=== PATIENT | female | born 1985 | race Caucasian/White ===

== ENCOUNTER 2016-10-11 11:28 | Emergency (ER) | payer BC ==
[~2016-10-11 11:28] MED LIST: Acetaminophen/HYDROcodone 325-5 MG Tab PO ONE
[2016-10-11] MEDS ORDERED: Morphine 4 MG/ML Syringe IM ONE (11:37)
[2016-10-11] MEDS ORDERED: Ondansetron 4 MG Tab.DIS PO ONE (11:37)
--- NOTE | 2016-10-11 11:46 | EDM.PDOC ---
ED HPI Trauma - General Stated Complaint: POSSIBLE BROKEN ARM Time Seen by Provider: 10/11/16 11:30 Source: Reports: Patient History Limitations: Reports: No limitations - History of Present Illness INITIAL COMMENTS - FREE TEXT/NARRATIVE: This patient is a 31 year old female that presents to the ER. Patient reports a cow hit the gate and the gate hit her. Patient reports the gate hit her in the head and her left arm was in the way of the gate and her. Patient reports having left wrist pain with deformity. Patient reports that she did not have LOC , n, v, vision changes. She is alert and oriented. She does not meet requirements for head ct at this time. She reports her only pain complaint is the left wrist. Pulses +2, cap refill <2 sec, sensory intact. Neurovascular intact. Motor is decreased due to pain. Symptom Onset Date: 10/11/16 Occurred When: just prior to arrival Occurred Where: home Method of Injury: direct blow Severity: moderate Pain/Injury Location: Reports: head, upper extremity, left Consciousness: Reports: no loss of consciousness, remembers incident, remembers coming to hosp Associated Symptoms: Denies: abdominal pain, chest pain, confusion, dizziness, headache, lightheadedness, muscle spasms, nausea/vomiting, neck pain, ringing in ears, seizures, shortness of breath, slurred speech, trouble walking, vision changes Allergies/ADRs: Allergies No Known Allergies Allergy (Verified 10/11/16 12:22) Home Medications: Ambulatory Orders Amoxicillin 500 mg PO ASDIRECTED 10/11/16 [Confirmed 10/11/16] Prednisone [IJD: Prednisone] 10 mg PO ASDIRECTED 10/11/16 [Confirmed 10/11/16] Review of Systems - Review of Systems Review Of Systems: See Below Constitutional: Reports: no symptoms Eyes: Reports: no symptoms Ears: Reports: no symptoms Nose: Reports: no symptoms Mouth/Throat: Reports: no symptoms Respiratory: Reports: No Symptoms Cardiovascular: Reports: no symptoms GI/Abdominal: Reports: No symptoms Genitourinary: Reports: no symptoms Musculoskeletal: Reports: joint pain (left wrist) Skin: Reports: other (swelling left frontal head) Neurological: Reports: No Symptoms Psychiatric: Reports: no symptoms Trauma Exam - Physical Exam Exam: See Below Exam Limited By: No limitations General Appearance: Reports: alert, WD/WN, no apparent distress Head: Reports: scalp hematoma (mild small left frontal. [id number] mildly raised. ) . Denies: scalp lacerations, scalp abrasions, active bleeding, facial abrasions , facial ecchymosis, facial lacerations, facial swelling, sinus tenderness, facial tenderness, raccoon eyes Eyes: bilateral eye: EOMI, normal inspection, PERRL Ears: Reports: normal external exam, normal canal, hearing grossly normal, normal TMs Nose: Reports: normal inspection, normal mucousa, no blood Throat/Mouth: Reports: Normal inspection, Normal lips, Normal teeth, Normal gums , Normal oropharynx, Normal voice, No airway compromise Neck: Reports: non-tender, full range of motion, normal alignment, normal inspection Respiratory Exam: Reports: no respiratory distress, lungs clear, normal breath sounds, no accessory muscle use, chest non-tender Cardiovascular: Reports: normal peripheral pulses, regular rate, rhythm, no edema, no gallop, no JVD, no murmur, no rub GI/Abdominal: Reports: soft, non tender Back: Reports: full range of motion, normal inspection, non-tender. Denies: CVA tenderness (R), CVA tenderness (L), decreased range of motion, muscle spasm , paraspinal tenderness, vertebral tenderness Extremities: Reports: bony-point tenderness (left wrist), pain with movement ( left wrist), tenderness (left wrist with deformity) Neurologic: Reports: alert, normal mood/affect, oriented x 3 Skin: Reports: Normal color, Warm/dry - [place] Coma Score Best Eye Response ([place]): (4) open spontaneously Best Verbal Response ([place]): (5) oriented Best Motor Response ([place]): (6) obeys commands Course - Orders/Labs/Meds Orders: Active Orders 24 hr Category Date Time Status Wrist Comp Min 3V Lt [CR] Stat Exams 10/11/16 11:37 Ordered Meds: Medications Discontinued Medications Generic Name Dose Route Start Last Admin Trade Name Freq PRN Reason Stop Dose Admin Hydrocodone Bitart/Acetaminophen 3 packet 10/11/16 13:06 Take Home: Acetaminophen/Hydrocod, 2 Tab Pack PO 10/11/16 13:07 ONETIME ONE Morphine Sulfate 4 mg 10/11/16 11:37 10/11/16 12:02 Morphine IM 10/11/16 11:38 4 mg ONETIME ONE Administration Ondansetron HCl 4 mg 05/07/17 11:37 10/11/16 12:03 Zofran Odt PO 10/11/16 11:38 4 mg ONETIME ONE Administration - Radiology Interpretation Free Text/Narrative:: Left wrist: Radius fx distal. Departure - Departure Time of Disposition: 12:53 Disposition: Home, Self-Care 01 Condition: good Clinical Impression: Fracture of radius Qualifiers: Encounter type: initial encounter Radius location: distal Fracture type: closed Fracture morphology: unspecified fracture morphology Laterality: left Qualified Code(s): S52.502A - Unspecified fracture of the lower end of left radius, initial encounter for closed fracture Instructions: Wrist Fracture Treated With Immobilization, [id number] Referrals: PCP,None [Primary Care Provider] - Additional Instructions: Followup with Orthopedic Dr. Forde [facility] Appointment tomorrow: Be at office at 12:30pm [facility] [address] [place] [address] Return to the ER for worsening of condition or any emergent concerns Rest Ice Elevate Motrin 800mg every 8 hours as needed Padroni 5/325mg 1-2 pills every 4-6 hours as needed for pain #6 Take Home - My Orders Last 24 Hours: My Active Orders 10/11/16 11:37 Wrist Comp Min 3V Lt [CR] Stat - Assessment/Plan Last 24 Hours: My Active Orders 10/11/16 11:37 Wrist Comp Min 3V Lt [CR] Stat Plan: PLEASE SEE RN NOTE FOR PFSH.
[2016-10-11] MEDS ORDERED: Take Home: Acetaminophen/HYDROcodone 325-5 MG, 2 Tab Pack PO ONE (13:06)
== END 2016-10-11 13:30 | disposition home or self-care (01) ==
LOC: CC.ED 11:28
DX: S52.502A Unspecified fracture of the lower end of left radius, initial encounter for closed fracture (principal); W22.8XXA Striking against or struck by other objects, initial encounter; Y92.009 Unspecified place in unspecified non-institutional (private) residence as the place of occurrence of the external cause
CPT/HCPCS: 73110; 96372; 99283; A9270; J2270; 29125

== ENCOUNTER 2017-08-17 09:20 | Emergency (ER) | payer BC ==
[2017-08-17 09:35] VITALS: BP 106/62
[2017-08-17] MEDS ORDERED: Sodium Chloride 0.9% 1,000 ML IV ONE (09:51)
[2017-08-17] MEDS ORDERED: Acetaminophen 325 MG Tab PO ONE (09:51)
[2017-08-17] MEDS ORDERED: Metoclopramide 10 MG/2 ML SDV IVPUSH ONE (09:52)
[2017-08-17 10:21] LABS: CHLORIDE,CL 103 mEq/L (98-106); SODIUM,NA 137 mEq/L (136-145)
[2017-08-17] MEDS ORDERED: Sodium Chloride 0.9% 1,000 ML ONE (11:14)
[2017-08-17] MEDS ORDERED: Sodium Chloride 0.9% 1,000 ML IV SCH (11:30)
--- NOTE | 2017-08-17 11:33 | EDM.PDOC ---
ED HPI GENERAL MEDICAL PROBLEM - General Chief Complaint: General Stated Complaint: rib pain Time Seen by Provider: 08/17/17 09:35 Source of Information: Reports: Patient History Limitations: Reports: No Limitations - History of Present Illness INITIAL COMMENTS - FREE TEXT/NARRATIVE: Yuliana is a 32 year old female who presents to the ED with complaints of mid thoracic back pain. She reports that the pain first started around 4 o'clock this morning. It has worsened since then. She reports she was "burping more than normal," so she did try taking some Pepto Bismol initially. She reports she then started vomiting. She tried taking Tylenol for the pain, but reports she vomited about 15 minutes after taking. She rates the pain a 9/10. She describes the pain as if "a tight band were wrapped around from her mid back." Pain is worse with lying down. She reports she has been unable to sleep since 4 am. Does reports nausea, vomiting, decreased appetite. Denies any fever, chills , abdominal pain, diarrhea, constipation, extremity swelling. Denies any abdominal cramping or vaginal bleeding. Reports baby has been active. FHTs 155. Reports she has had care without any complications with Dr. Hutchinson in [place]. Reports she has an appointment scheduled with her next week. Onset: Today Onset Date: 08/17/17 Onset Time: 04:00 Duration: Constant, Getting Worse Location: Reports: Back Quality: Reports: Pressure Severity: Severe Improves with: Reports: None Worsens with: Reports: Movement Context: Reports: Activity Associated Symptoms: Reports: Chest Pain, Loss of Appetite, Nausea/Vomiting. Denies: Confusion, Cough, cough w sputum, Diaphoresis, Fever/Chills, Headaches, Malaise, Rash, Seizure, Shortness of Breath, Syncope, Weakness Treatments LPN PER DIEM: Reports: Acetaminophen, Other (see below) (Pepto Bismol) Chest Pain Score (Numeric/FACES): 9 - Related Data Allergies Allergy/AdvReac Type Severity Reaction Status Date / Time No Known Allergies Allergy Verified 08/17/17 09:35 Home Meds: Home Meds Cholecalciferol (Vitamin D3) [Vitamin D3] 10,000 unit PO DAILY 08/17/17 [History ] Ondansetron HCl [Zofran] 4 mg PO Q8H PRN #20 tablet 08/17/17 [Rx] PNV95/Ferrous Fumarate/FA [ Tablet] 1 each PO DAILY 08/17/17 [History] Past Medical History Respiratory History: Reports: Asthma - Past Surgical History HEENT Surgical History: Reports: LASIK, Oral Surgery, Tonsillectomy Social & Family History - Tobacco Use Smoking Status *Q: Never Smoker Used Tobacco, but Quit: Yes Month/Year Tobacco Last Used: 2012 - Caffeine Use Caffeine Use: Reports: None - Recreational Drug Use Recreational Drug Use: No ED ROS GENERAL - Review of Systems Review Of Systems: See Below Constitutional: Denies: Fever, Chills Respiratory: Reports: Shortness of Breath Cardiovascular: Reports: Dyspnea on Exertion. Denies: Blood Pressure Problem, Edema, Lightheadedness GI/Abdominal: Reports: Abdominal Pain, Decreased Appetite, Nausea, Vomiting. Denies: Constipation, Diarrhea, Distension, Hematemesis, Hematochezia : Reports: No Symptoms Neurological: Reports: No Symptoms Psychiatric: Reports: No Symptoms ED EXAM, GENERAL - Physical Exam Exam: See Below Exam Limited By: No Limitations General Appearance: Alert, WD/WN, Anxious, Mild Distress Head: Atraumatic, Normocephalic Neck: Normal Inspection, Supple, Non-Tender, Full Range of Motion Respiratory/Chest: No Respiratory Distress, Lungs Clear, Normal Breath Sounds, No Accessory Muscle Use, Chest Non-Tender Cardiovascular: Normal Peripheral Pulses, Regular Rate, Rhythm, No Edema, No Gallop, No JVD, No Murmur, No Rub GI/Abdominal: Normal Bowel Sounds, Soft, Tender. No: No Distention, Guarding, Rigid, Rebound Back Exam: Normal Inspection, Full Range of Motion. No: CVA Tenderness (L), CVA Tenderness (R), Paraspinal Tenderness, Vertebral Tenderness Extremities: Normal Inspection, Normal Range of Motion, Non-Tender, Normal Capillary Refill, No Pedal Edema Neurological: Alert, Oriented, CN II-XII Intact, Normal Cognition, Normal Gait, Normal Reflexes, No Motor/Sensory Deficits Psychiatric: Anxious Skin Exam: Warm, Dry, Intact, Normal Color, No Rash Lymphatic: No Adenopathy Course - Vital Signs Last Recorded V/S: Last Vital Signs Temp 97.0 F 08/17/17 09:32 Pulse 63 08/17/17 09:32 Resp 20 08/17/17 09:32 BP 106/62 08/17/17 09:32 Pulse Ox 99 08/17/17 09:32 - Orders/Labs/Meds Labs: Laboratory Tests 08/17/17 08/17/17 08/17/17 Range/Units 09:56 09:56 09:56 WBC 13.2 H (5.0-10.0) 10^3/uL RBC 4.21 (4.00-5.50) 10^6/uL Hgb 12.6 (12.0-16.0) g/dL Hct 37.5 (37.0-47.0) % MCV 89.1 (82.0-94.0) fL MCH 29.9 (27.0-32.0) pg MCHC 33.6 (33.0-38.0) g/dL RDW Coeff of Shaylee 13.4 (11.0-15.0) % Plt Count 319 (150-400) 10^3/uL Neut % (Auto) 87.5 H (35-85) % Lymph % (Auto) 7.5 L (10-55) % [place] % (Auto) 4.6 (0-16) % Eos % (Auto) 0.3 (0-5) % Baso % (Auto) 0.1 (0-3) % Neut # (Auto) 11.59 H (1.80-7.00) 10^3/uL Lymph # (Auto) 0.99 L (1.00-4.80) 10^3/uL [place] # (Auto) 0.61 (0.00-0.80) 10^3/uL Eos # (Auto) 0.04 (0.00-0.45) 10^3/uL Baso # (Auto) 0.01 10^3/uL Sodium 137 (136-145) mEq/L Potassium 4.2 (3.5-5.0) mEq/L Chloride 103 (98-106) mEq/L Carbon Dioxide 24 (21-32) mmol/L BUN 10 (7-18) mg/dL Creatinine 0.6 (0.6-1.0) mg/dL Est Cr Clr Drug Dosing 122.25 mL/min Estimated GFR (MDRD) > 60 (>=60) mL/min Glucose 142 H (75-99) mg/dL Calcium 8.2 L (8.4-10.1) mg/dL Total Bilirubin 0.8 (0.0-1.0) mg/dL AST 322 H* (15-37) U/L ALT 285 H (12-78) U/L Alkaline Phosphatase 143 H (46-116) U/L Troponin I < 0.017 (0.00-0.06) ng/mL C-Reactive Protein < 0.2 L (0.2-0.8) mg/dL Total Protein 6.5 (6.4-8.2) g/dL Albumin 3.0 L (3.4-5.0) g/dL Amylase 48 (25-115) U/L Urine Color Dark yellow (YELLOW) Urine Appearance Clear (CLEAR) Urine pH 6.0 (4.5-8.0) Ur Specific [place] >= 1.030 H (1.003-1.020) Urine Protein 100 H (NEGATIVE) mg/dL Urine Glucose (UA) 100 H (NEGATIVE) mg/dL Urine Ketones 15 H (NEGATIVE) mg/dL Urine Occult Blood Negative (NEGATIVE) Urine Nitrite Negative (NEGATIVE) Urine Bilirubin Negative (NEGATIVE) Urine Urobilinogen 4.0 H (0.2-1.0) EU/dL Ur Leukocyte Esterase Negative (NEGATIVE) Urine RBC Not seen (0-5) /HPF Urine WBC Not seen (0-5) /HPF Ur Squamous Epith Cells Moderate H (NOT SEEN) /HPF Urine Bacteria Few H (NOT SEEN) /HPF Urine Mucus Few H (NOT SEEN) /HPF Meds: Medications Discontinued Medications Generic Name Dose Route Start Last Admin Trade Name Freq PRN Reason Stop Dose Admin Acetaminophen 650 mg 08/17/17 09:51 08/17/17 09:56 Tylenol PO 08/17/17 09:52 650 mg NOW ONE Administration Sodium Chloride 1,000 mls @ 999 mls/hr 08/17/17 09:51 08/17/17 10:15 Normal Saline IV 08/17/17 10:51 999 mls/hr .BOLUS ONE Administration Sodium Chloride Confirm 08/17/17 11:14 08/17/17 11:25 Normal Saline Administered 08/17/17 11:15 Not Given Dose 1,000 mls @ as directed .ROUTE .STK-MED ONE Sodium Chloride 1,000 mls @ 150 mls/hr 08/17/17 11:30 08/17/17 11:20 Normal Saline IV 150 mls/hr ASDIRECTED HUSSEIN Administration Metoclopramide HCl 10 mg 08/17/17 09:52 08/17/17 10:16 Reglan IVPUSH 08/17/17 09:53 10 mg ONETIME ONE Administration - Re-Assessments/Exams Free Text/Narrative Re-Assessment/Exam: Discussed labs with patient. Will proceed with US abdomen to r/o acute cholecystitis given elevated LFTs. US completed and reveals cholelithiasis and sludge without cholecystitis. Patient's nausea and pain improved after Tylenol, reglan, and IVF. Discussed case with Dr. Hutchinson, patient's PCP. She recommends discharge home with oxycodone and zofran PRN. She will see her in clinic tomorrow morning. Will recheck labs at 10 am and see patient at 11 am. Discussed this with patient, who was agreeable with plan. Departure - Departure Time of Disposition: 13:50 Disposition: Home, Self-Care 01 Condition: Good Clinical Impression: Cholelithiasis without cholangitis - Discharge Information Prescriptions: Ondansetron HCl [Zofran] 4 mg PO Q8H PRN #20 tablet PRN Reason: Nausea Instructions: Cholelithiasis, [id number], Low-Fat Diet for Pancreatitis or Gallbladder Conditions Referrals: Kathi Hutchinson MD [Primary Care Provider] - Forms: ED Department Discharge Additional Instructions: Zofran as needed for nausea Oxycodone as needed for pain Avoid Tylenol until liver enzymes normalize Push fluids Recommend low fat diet Follow up with Dr. Hutchinson tomorrow 08/18/2017. Lab to recheck liver enzymes at 10 am. Clinic visit at 11 am.
== END 2017-08-17 14:10 | disposition home or self-care (01) ==
LOC: CC.ED 09:20
DX: O99.612 Diseases of the digestive system complicating pregnancy, second trimester (principal); K80.20 Calculus of gallbladder without cholecystitis without obstruction; Z3A.22 22 weeks gestation of pregnancy; Z79.899 Other long term (current) drug therapy
CPT/HCPCS: 36415; 76705; 80053; 81001; 82150; 84484; 85025; 86140; 93005; 96361; 96374; 99284; A9270; J2765; J7030

== ENCOUNTER 2017-08-26 22:18 | Emergency (ER) | payer BC ==
[2017-08-26 22:23] VITALS: BP 109/58
--- NOTE | 2017-08-26 22:52 | EDM.PDOC ---
ED HPI GENERAL MEDICAL PROBLEM - General Chief Complaint: Abdominal Pain Stated Complaint: "GALLBLADDER ATTACK" Time Seen by Provider: 08/26/17 22:31 Source of Information: Reports: Patient History Limitations: Reports: No Limitations - History of Present Illness INITIAL COMMENTS - FREE TEXT/NARRATIVE: states at 9:45 this evening she started having right upper quadrant pain. Has been in the ER about a week ago and found to have elevated LFT's and Cholelithiasis without cholecystitis. She did have repeat LFT's done yesterday with Dr. Hutchinson and they had come down. She has seen surgeon and they are hoping to get through the before having to do the cholecystectomy. She is about 23 weeks at this time. Has had some nausea that is getting better and the pain is better now than when it started. She is concerned about taking meds when she is . Onset: Today Location: Reports: Abdomen Quality: Reports: Sharp Right Upper Abdominal Pain Score (Numeric/FACES): 8 - Related Data Allergies Allergy/AdvReac Type Severity Reaction Status Date / Time No Known Allergies Allergy Verified 08/26/17 22:19 Home Meds: Home Meds Cholecalciferol (Vitamin D3) [Vitamin D3] 10,000 unit PO DAILY 08/17/17 [History ] Ondansetron HCl [Zofran] 4 mg PO Q8H PRN #20 tablet 08/17/17 [Rx] PNV95/Ferrous Fumarate/FA [ Tablet] 1 each PO DAILY 08/17/17 [History] Past Medical History Respiratory History: Reports: Asthma Gastrointestinal History: Reports: Other (See Below) Other Gastrointestinal History: stones and "slug" in gallbladder 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: Musculoskeletal History: Reports: Fracture - Infectious Disease History Infectious Disease History: Reports: Chicken Pox - Past Surgical History HEENT Surgical History: Reports: LASIK, Oral Surgery, Tonsillectomy Respiratory Surgical History: Reports: None Social & Family History - Family History Family Medical History: Noncontributory - Tobacco Use Smoking Status *Q: Never Smoker Used Tobacco, but Quit: Yes Month/Year Tobacco Last Used: 2012 - Caffeine Use Caffeine Use: Reports: None - Recreational Drug Use Recreational Drug Use: No ED ROS GENERAL - Review of Systems Review Of Systems: See Below Constitutional: Denies: Fever, Chills Respiratory: Reports: No Symptoms Cardiovascular: Reports: No Symptoms GI/Abdominal: Reports: Abdominal Pain, Nausea, Vomiting. Denies: Constipation, Diarrhea : Reports: No Symptoms Musculoskeletal: Reports: No Symptoms ED EXAM, GI/ABD - Physical Exam Exam: See Below Exam Limited By: No Limitations General Appearance: Alert, WD/WN, Moderate Distress Head: Atraumatic, Normocephalic Neck: Normal Inspection, Supple Respiratory/Chest: No Respiratory Distress, Lungs Clear, Normal Breath Sounds Cardiovascular: Regular Rate, Rhythm, No Edema GI/Abdominal Exam: Normal Bowel Sounds, Soft, Tender (to the right upper quadrant. Gravid uterus noted with active movements from baby. FHT were doppled by nursing.) Neurological: Alert, Oriented Skin Exam: Warm, Dry, Intact Course - Vital Signs Last Recorded V/S: Last Vital Signs Temp 97.7 F 08/26/17 22:20 Pulse 88 08/26/17 22:20 Resp 16 08/26/17 22:20 BP 109/58 L 08/26/17 22:20 Pulse Ox 98 08/26/17 22:20 - Re-Assessments/Exams Free Text/Narrative Re-Assessment/Exam: 08/26/17 22:50 pain has improved since it first started. Discussed using the meds that she does have at home for the pain and nausea. She can try taking just 1/2 tablet to start with to see how it will effect her. She voices understanding of the above. Departure - Departure Time of Disposition: 22:50 Disposition: Home, Self-Care 01 Condition: Good Clinical Impression: Cholelithiasis without cholangitis - Discharge Information Instructions: Cholelithiasis Referrals: Kathi Hutchinson MD [Primary Care Provider] - Additional Instructions: Use the Zofran at home for the nausea Use the oxycodone that you have at home for the pain. If you area unsure tae 1/ 2 tab to start with. Watch diet and the type of foods you are eating Follow up with Dr. Hutchinson as scheduled. - Problem List & Annotations (1) Cholelithiasis without cholangitis SNOMED Code(s): 004999059 Code(s): K80.20 - CALCULUS OF GALLBLADDER W/O CHOLECYSTITIS W/O OBSTRUCTION Status: Acute Priority: High Current Visit: Yes - Problem List Review Problem List Initiated/Reviewed/Updated: Yes
== END 2017-08-26 22:55 | disposition home or self-care (01) ==
LOC: CC.ED 22:18
DX: O99.612 Diseases of the digestive system complicating pregnancy, second trimester (principal); K80.20 Calculus of gallbladder without cholecystitis without obstruction; Z90.49 Acquired absence of other specified parts of digestive tract; Z3A.23 23 weeks gestation of pregnancy
CPT/HCPCS: 99283